=== PATIENT | male | born 1935 | race Caucasian/White ===

== ENCOUNTER 2017-11-28 10:34 | Inpatient (IN) | payer MEDICARE ==
[~2017-11-28] VITALS: Ht 172.7 cm; Wt 92.4 kg
[~2017-11-28 10:34] MED LIST: ACET-2247 PO; ALBU18HF7 IH; ALLO100T PO; ASPI81TA40 PO; CYAN50TA2 PO; DILT90TA2 PO; DUONEB IH; GLIM1TAB2 PO; HYDR12.54 PO; LISI-613 PO; LISI1TAB11 PO; MEMA10TA11 PO; MEMA5TAB7 PO; METF500T6 PO; METO100T14 PO; METO50TA18 PO; OMEP40CA37 PO; Z-PACK PO; vit D PO
[2017-11-28 11:05] LABS: BASOPHILS % (AUTO) 0.7 % (0.0-5.0); EOSINOPHILS % (AUTO) 3.5 % (0.0-8.0); HEMATOCRIT 44.6 % (42-54); LYMPHOCYTES % (AUTO) 9.5 % (21.0-51.0); MEAN CORPUSCULAR HEMOGLOBIN 28.2 pg (27.0-33.0); MEAN CORPUSCULAR HGB CONC 32.8 g/dL (32.0-36.0); MEAN CORPUSCULAR VOLUME 85.9 fL (79-99); MONOCYTES % (AUTO) 7.3 % (3.0-13.0); NUCLEATED RED BLOOD CELLS 0.1 % (0.0-0.19); PLATELET COUNT (AUTO) 137 K/uL (130-400); RED BLOOD CELL COUNT(AUTO) 5.19 MIL/uL (4.50-6.20); RED CELL DISTRIBUTION WIDTH 17.3 % (11.0-15.5); WHITE BLOOD COUNT (AUTO) 11.7 K/uL (4.8-10.8)
[2017-11-28] MEDS ORDERED: ASPIRIN 325 MG TABLET ONE (11:11)
[2017-11-28 11:14] LABS: CREATININE 1.6 mg/dL (0.5-1.5); POTASSIUM 5.4 mmol/L (3.5-5.1)
[2017-11-28 11:34] LABS: ALBUMIN 3.3 g/dL (3.5-5.0); BILIRUBIN,TOTAL 0.9 mg/dL (0.2-1.0); CREATINE KINASE MB 1.3 ng/mL (0.5-3.6); TOTAL PROTEIN, SERUM 7.2 g/dL (6.0-8.3)
[2017-11-28 12:02] LABS: INR 3.99 (0.85-1.15); PROTHROMBIN TIME 40.8 SEC (9.6-11.6)
[2017-11-28] MEDS ORDERED: IPRATROPIUM/ALBUTEROL SULFATE 3 ML SOLUTION IH ONE (14:38)
[2017-11-28] MEDS ORDERED: HYDRALAZINE HCL 20 MG/ML VIAL IV PRN (15:30)
[2017-11-28] MEDS ORDERED: ACETAMINOPHEN 325 MG TAB PO PRN (15:30)
[2017-11-28] MEDS ORDERED: LACTULOSE 20 GM/30 ML UDCUP PO PRN (15:30)
[2017-11-28] MEDS ORDERED: CEFTRIAXONE 1GM/D5W 50ML 50 ML IV SCH (15:30)
[2017-11-28] MEDS ORDERED: DIPHENHYDRAMINE HCL 25 MG CAPSULE PO PRN (15:30)
[2017-11-28] MEDS: INSULIN HUMULIN R 100 UNIT/ML 3ML SQ SCH ×2 (16:30→21:00)
[2017-11-28] MEDS: IPRATROPIUM/ALBUTEROL SULFATE 3 ML SOLUTION IH SCH ×2 (19:29→23:36)
[2017-11-28] MEDS ORDERED: AZITHROMYCIN 500MG+NS 250ML 250 ML IV ONE (21:30)
[2017-11-28 22:00] VITALS: BP 142/77
[2017-11-28] MEDS ORDERED: IOPAMIDOL-370 100 ML VIAL IV ONE (22:57)
[2017-11-28] MEDS: AZITHROMYCIN 500MG+NS 250ML 250 ML IV SCH (23:00)
[2017-11-29] VITALS: BP 156/81
[2017-11-29] MEDS ORDERED: ARFO15VI3 IH (00:45)
[2017-11-29] MEDS ORDERED: CLOP75TA32 PO (00:45)
[2017-11-29] MEDS ORDERED: WARF2.5T85 PO (00:45)
[2017-11-29] MEDS ORDERED: ATOR10 PO (00:45)
[2017-11-29] MEDS ORDERED: NITR.4 SL (01:06)
[2017-11-29] MEDS: CEFTRIAXONE SODIUM 1 GM IVP SCH ×2 (01:08→15:37)
[2017-11-29 04:00] VITALS: BP 118/64
[2017-11-29 04:50] LABS: HEMATOCRIT 43.9 % (42-54); MEAN CORPUSCULAR HEMOGLOBIN 27.8 pg (27.0-33.0); MEAN CORPUSCULAR HGB CONC 32.3 g/dL (32.0-36.0); PLATELET COUNT (AUTO) 160 K/uL (130-400); RED CELL DISTRIBUTION WIDTH 17.5 % (11.0-15.5); WHITE BLOOD COUNT (AUTO) 12.5 K/uL (4.8-10.8)
[2017-11-29 04:55] LABS: CREATININE 1.5 mg/dL (0.5-1.5); MAGNESIUM 1.4 mg/dL (1.80-2.40); POTASSIUM 3.3 mmol/L (3.5-5.1)
[2017-11-29] MEDS: INSULIN HUMULIN R 100 UNIT/ML 3ML SQ SCH ×4 (06:36→21:00)
[2017-11-29] MEDS: IPRATROPIUM/ALBUTEROL SULFATE 3 ML SOLUTION IH SCH ×4 (07:10→23:14)
[2017-11-29 08:00] VITALS: BP 134/94
[2017-11-29] MEDS ORDERED: NITROGLYCERIN 0.4 MG SL TAB SL PRN (09:00)
[2017-11-29] MEDS ORDERED: ACETAMINOPHEN 325 MG TAB PO PRN (09:00)
[2017-11-29] MEDS ORDERED: PANTOPRAZOLE SODIUM 40 MG TABLET.DR PO SCH (09:00)
[2017-11-29] MEDS ORDERED: HYDROCHLOROTHIAZIDE 25 MG TABLET PO SCH (09:30)
[2017-11-29] MEDS: ALLOPURINOL 100 MG TABLET PO SCH (09:56)
[2017-11-29] MEDS: METFORMIN HCL 500 MG TABLET PO SCH (09:56)
[2017-11-29] MEDS: ASPIRIN 81 MG EC TAB PO SCH (09:56)
[2017-11-29] MEDS: MEMANTINE HCL 5 MG TABLET PO SCH ×2 (09:56→21:04)
[2017-11-29] MEDS: GLIMEPIRIDE 2 MG TABLET PO SCH ×2 (10:00→21:03)
[2017-11-29] MEDS: DILTIAZEM HCL 60 MG TABLET PO SCH ×2 (10:01→21:04)
[2017-11-29] MEDS: PANTOPRAZOLE SODIUM 40 MG TABLET.DR PO SCH (10:01)
[2017-11-29 11:00] VITALS: BP 135/74
[2017-11-29] MEDS: HALOPERIDOL LACTATE 5 MG/ML VIAL IV PRN ×2 (12:09→21:09)
[2017-11-29] MEDS ORDERED: POTASSIUM CHLORIDE 20 MEQ ERTAB PO PRN (12:30)
[2017-11-29] MEDS ORDERED: LIDOCAINE HCL-MPF 1% 2ML VIAL IVP PRN (12:30)
[2017-11-29] MEDS ORDERED: MAGNESIUM 2GM PREMIX 50ML 50 ML IV SCH (12:30)
[2017-11-29] MEDS ORDERED: SODIUM CHLORIDE 0.9% 1000ML 1,000 ML IV SCH (12:30)
[2017-11-29] MEDS ORDERED: POTASSIUM CHLORIDE 20MEQ/100ML 100 ML IV PRN (12:30)
[2017-11-29] MEDS: AZITHROMYCIN 500MG+NS 250ML 250 ML IV SCH (15:38)
[2017-11-29 16:00] VITALS: BP 142/22
[2017-11-29 20:00] VITALS: BP 144/92
[2017-11-29] MEDS: BROVANA 15 MCG IH SCH (21:00)
[2017-11-29] MEDS: HYDROCHLOROTHIAZIDE 25 MG TABLET PO SCH (21:02)
[2017-11-29] MEDS: LISINOPRIL 20 MG TABLET PO SCH (21:03)
[2017-11-29] MEDS: ATORVASTATIN CALCIUM 20 MG TABLET PO SCH (21:03)
[2017-11-29] MEDS ORDERED: RIVA1PAT12 TD (21:16)
[2017-11-29] MEDS ORDERED: [UNRECOGNIZED DRUG - CODE] TD (21:16)
[2017-11-30] VITALS (7 sets, daily range): BP systolic 103–166; BP diastolic 60–94
[2017-11-30 04:23] LABS: HEMATOCRIT 39.7 % (42-54); MEAN CORPUSCULAR HEMOGLOBIN 28.3 pg (27.0-33.0); MEAN CORPUSCULAR HGB CONC 33.4 g/dL (32.0-36.0); MEAN CORPUSCULAR VOLUME 84.6 fL (79-99); PLATELET COUNT (AUTO) 146 K/uL (130-400); RED CELL DISTRIBUTION WIDTH 17.5 % (11.0-15.5); WHITE BLOOD COUNT (AUTO) 9.8 K/uL (4.8-10.8)
[2017-11-30 04:51] LABS: INR 2.26 (0.85-1.15); PARTIAL THROMBOPLASTIN TIME 38.7 SEC (26.3-35.5); PROTHROMBIN TIME 23.4 SEC (9.6-11.6)
[2017-11-30 04:55] LABS: CREATININE 1.3 mg/dL (0.5-1.5); MAGNESIUM 1.6 mg/dL (1.80-2.40)
[2017-11-30] MEDS: IPRATROPIUM/ALBUTEROL SULFATE 3 ML SOLUTION IH SCH ×4 (06:42→23:52)
[2017-11-30] MEDS: INSULIN HUMULIN R 100 UNIT/ML 3ML SQ SCH ×4 (07:30→22:13)
[2017-11-30] MEDS: METFORMIN HCL 500 MG TABLET PO SCH ×2 (09:00→21:00)
[2017-11-30] MEDS: BROVANA 15 MCG IH SCH ×2 (09:00→21:00)
[2017-11-30] MEDS: ASPIRIN 81 MG EC TAB PO SCH (11:25)
[2017-11-30] MEDS: DILTIAZEM HCL 60 MG TABLET PO SCH ×2 (11:26→22:02)
[2017-11-30] MEDS: GLIMEPIRIDE 2 MG TABLET PO SCH (11:27)
[2017-11-30] MEDS: HYDROCHLOROTHIAZIDE 25 MG TABLET PO SCH (11:28)
[2017-11-30] MEDS: PANTOPRAZOLE SODIUM 40 MG TABLET.DR PO SCH (11:28)
[2017-11-30] MEDS: LISINOPRIL 20 MG TABLET PO SCH ×2 (11:31→22:00)
[2017-11-30] MEDS: ALLOPURINOL 100 MG TABLET PO SCH (11:31)
[2017-11-30] MEDS: POTASSIUM CHLORIDE 10% ELIXIR 20 MEQ/15 ML UDCUP PO PRN ×2 (11:32→19:15)
[2017-11-30] MEDS: MEMANTINE HCL 5 MG TABLET PO SCH ×2 (11:39→22:01)
[2017-11-30] MEDS ORDERED: CEFEPIME 1GM+NS 50ML 50 ML IV SCH (13:00)
[2017-11-30] MEDS ORDERED: MAGNESIUM 2GM PREMIX 50ML 50 ML IV SCH (13:00)
[2017-11-30] MEDS ORDERED: METFORMIN HCL 500 MG TABLET ONE (14:17)
[2017-11-30] MEDS: DEXAMETHASONE SOD PHOSPHATE 4 MG/ML 1ML VIAL IVP SCH (18:08)
[2017-11-30] MEDS: DOXYCYCLINE 100MG+NS 250ML 250 ML IV SCH (18:09)
[2017-11-30] MEDS: CEFEPIME HCL 1 GM VIAL IVP SCH ×2 (18:09→22:45)
[2017-11-30] MEDS: WARFARIN SODIUM 2 MG TAB PO SCH (18:11)
[2017-11-30] MEDS: BUDESONIDE 0.5 MG/2 ML INH IH SCH (19:35)
[2017-11-30] MEDS: ATORVASTATIN CALCIUM 20 MG TABLET PO SCH (22:01)
[2017-12-01] VITALS (7 sets, daily range): BP systolic 111–152; BP diastolic 61–90
[2017-12-01] MEDS: DEXAMETHASONE SOD PHOSPHATE 4 MG/ML 1ML VIAL IVP SCH ×2 (02:36→13:02)
[2017-12-01] MEDS: DOXYCYCLINE 100MG+NS 250ML 250 ML IV SCH ×2 (03:48→13:01)
[2017-12-01 04:37] LABS: CREATININE 1.5 mg/dL (0.5-1.5); MAGNESIUM 1.9 mg/dL (1.80-2.40); POTASSIUM 3.9 mmol/L (3.5-5.1)
[2017-12-01] MEDS: CEFEPIME HCL 1 GM VIAL IVP SCH ×3 (05:57→23:15)
[2017-12-01] MEDS ORDERED: INSULIN HUMULIN R 100 UNIT/ML 3ML SQ ONE (06:02)
[2017-12-01] MEDS: INSULIN HUMULIN R 100 UNIT/ML 3ML SQ SCH ×4 (06:46→21:25)
[2017-12-01] MEDS: BUDESONIDE 0.5 MG/2 ML INH IH SCH ×2 (06:47→18:31)
[2017-12-01] MEDS: IPRATROPIUM/ALBUTEROL SULFATE 3 ML SOLUTION IH SCH ×4 (06:47→23:32)
[2017-12-01] MEDS: METFORMIN HCL 500 MG TABLET PO SCH ×2 (09:00→21:00)
[2017-12-01] MEDS: BROVANA 15 MCG IH SCH ×2 (09:00→21:00)
[2017-12-01] MEDS ORDERED: COMPOUND IV REFRIGERATED 1 EACH IVSOLN MISC PRN (09:30)
[2017-12-01] MEDS ORDERED: VANCOMYCIN PROTOCOL PER PHARMACY IV SCH (09:30)
[2017-12-01] MEDS: VANCOMYCIN 1.25 GM in SODIUM CHLORIDE 0.9% 250 ML IV SCH (13:02)
[2017-12-01] MEDS: MEMANTINE HCL 5 MG TABLET PO SCH ×2 (13:03→21:19)
[2017-12-01] MEDS: DILTIAZEM HCL 60 MG TABLET PO SCH ×2 (13:03→21:20)
[2017-12-01] MEDS: LISINOPRIL 20 MG TABLET PO SCH ×2 (13:04→21:20)
[2017-12-01] MEDS: ASPIRIN 81 MG EC TAB PO SCH (13:04)
[2017-12-01] MEDS: ALLOPURINOL 100 MG TABLET PO SCH (13:04)
[2017-12-01] MEDS: ENOXAPARIN SODIUM 40 MG/0.4 ML SYRINGE SQ SCH ×2 (13:08→13:15)
[2017-12-01] MEDS: PANTOPRAZOLE SODIUM 40 MG TABLET.DR PO SCH (13:26)
[2017-12-01] MEDS: WARFARIN SODIUM 2 MG TAB PO SCH (18:56)
[2017-12-01] MEDS: GUAIFENESIN-DM 200/20 MG 10 ML PO PRN (19:00)
[2017-12-01] MEDS: ATORVASTATIN CALCIUM 20 MG TABLET PO SCH (21:19)
[2017-12-01] MEDS: INSULIN GLARGINE 100 UNITS/ML 10 ML VIAL SQ SCH (21:27)
[2017-12-02] MEDS: DEXAMETHASONE SOD PHOSPHATE 4 MG/ML 1ML VIAL IVP SCH (01:22)
[2017-12-02] MEDS: HALOPERIDOL LACTATE 5 MG/ML VIAL IV PRN (03:06)
[2017-12-02] MEDS: DOXYCYCLINE 100MG+NS 250ML 250 ML IV SCH ×2 (03:06→17:55)
[2017-12-02 03:57] VITALS: BP 131/80
[2017-12-02 05:55] LABS: HEMATOCRIT 42.2 % (42-54); MEAN CORPUSCULAR HEMOGLOBIN 27.6 pg (27.0-33.0); MEAN CORPUSCULAR HGB CONC 32.7 g/dL (32.0-36.0); MEAN CORPUSCULAR VOLUME 84.4 fL (79-99); PLATELET COUNT (AUTO) 160 K/uL (130-400); RED CELL DISTRIBUTION WIDTH 17.4 % (11.0-15.5); WHITE BLOOD COUNT (AUTO) 17.5 K/uL (4.8-10.8)
[2017-12-02 06:07] LABS: INR 1.62 (0.85-1.15); PROTHROMBIN TIME 16.8 SEC (9.6-11.6)
[2017-12-02 06:13] LABS: CREATININE 1.3 mg/dL (0.5-1.5)
[2017-12-02] MEDS: INSULIN HUMULIN R 100 UNIT/ML 3ML SQ SCH ×4 (06:22→21:26)
[2017-12-02] MEDS: IPRATROPIUM/ALBUTEROL SULFATE 3 ML SOLUTION IH SCH ×3 (06:49→23:31)
[2017-12-02] MEDS: BUDESONIDE 0.5 MG/2 ML INH IH SCH ×2 (06:49→18:56)
[2017-12-02] MEDS: CEFEPIME HCL 1 GM VIAL IVP SCH ×3 (07:00→22:22)
[2017-12-02] MEDS: BROVANA 15 MCG IH SCH ×2 (07:51→21:00)
[2017-12-02] MEDS: METFORMIN HCL 500 MG TABLET PO SCH ×2 (07:54→21:00)
[2017-12-02 08:00] VITALS: BP 134/85
[2017-12-02] MEDS: MEMANTINE HCL 5 MG TABLET PO SCH ×2 (08:10→21:21)
[2017-12-02] MEDS: LISINOPRIL 20 MG TABLET PO SCH ×2 (08:11→21:21)
[2017-12-02] MEDS: PANTOPRAZOLE SODIUM 40 MG TABLET.DR PO SCH (08:11)
[2017-12-02] MEDS: ASPIRIN 81 MG EC TAB PO SCH (08:11)
[2017-12-02] MEDS: DILTIAZEM HCL 60 MG TABLET PO SCH ×2 (08:12→21:21)
[2017-12-02] MEDS: ALLOPURINOL 100 MG TABLET PO SCH (08:22)
[2017-12-02] MEDS: VANCOMYCIN 1.25 GM in SODIUM CHLORIDE 0.9% 250 ML IV SCH (10:00)
[2017-12-02] MEDS ORDERED: ZIPRASIDONE MESYLATE 20 MG/VIAL IM PRN (11:45)
[2017-12-02 12:00] VITALS: BP 140/69
[2017-12-02 16:39] VITALS: BP 151/72
[2017-12-02] MEDS: WARFARIN SODIUM 2 MG TAB PO SCH (17:55)
[2017-12-02 20:00] VITALS: BP 144/71
[2017-12-02] MEDS: ATORVASTATIN CALCIUM 20 MG TABLET PO SCH (21:21)
[2017-12-02] MEDS: INSULIN GLARGINE 100 UNITS/ML 10 ML VIAL SQ SCH (22:23)
[2017-12-02 23:34] VITALS: BP 123/74
[2017-12-03 04:00] VITALS: BP 141/85
[2017-12-03] MEDS: DOXYCYCLINE 100MG+NS 250ML 250 ML IV SCH (04:26)
[2017-12-03] MEDS: CEFEPIME HCL 1 GM VIAL IVP SCH (06:09)
[2017-12-03] MEDS: INSULIN HUMULIN R 100 UNIT/ML 3ML SQ SCH ×4 (06:10→21:14)
[2017-12-03 06:16] LABS: HEMATOCRIT 42.4 % (42-54); MEAN CORPUSCULAR HGB CONC 32.6 g/dL (32.0-36.0); MEAN CORPUSCULAR VOLUME 85.9 fL (79-99); PLATELET COUNT (AUTO) 169 K/uL (130-400); RED BLOOD CELL COUNT(AUTO) 4.94 MIL/uL (4.50-6.20); RED CELL DISTRIBUTION WIDTH 17.5 % (11.0-15.5); WHITE BLOOD COUNT (AUTO) 12.7 K/uL (4.8-10.8)
[2017-12-03] MEDS: BUDESONIDE 0.5 MG/2 ML INH IH SCH ×2 (06:42→18:34)
[2017-12-03] MEDS: IPRATROPIUM/ALBUTEROL SULFATE 3 ML SOLUTION IH SCH ×4 (06:42→23:49)
[2017-12-03 07:00] VITALS: BP 133/70
[2017-12-03] MEDS: METFORMIN HCL 500 MG TABLET PO SCH ×2 (09:00→21:00)
[2017-12-03] MEDS: BROVANA 15 MCG IH SCH ×2 (09:00→21:00)
[2017-12-03] MEDS: LISINOPRIL 20 MG TABLET PO SCH ×2 (10:21→21:11)
[2017-12-03] MEDS: MEMANTINE HCL 5 MG TABLET PO SCH ×2 (10:21→21:11)
[2017-12-03] MEDS: DILTIAZEM HCL 60 MG TABLET PO SCH ×2 (10:23→21:12)
[2017-12-03] MEDS: ALLOPURINOL 100 MG TABLET PO SCH (10:23)
[2017-12-03] MEDS: ASPIRIN 81 MG EC TAB PO SCH (10:23)
[2017-12-03] MEDS: PANTOPRAZOLE SODIUM 40 MG TABLET.DR PO SCH (10:24)
[2017-12-03] MEDS: VANCOMYCIN 1.25 GM in SODIUM CHLORIDE 0.9% 250 ML IV SCH (10:28)
[2017-12-03 10:51] VITALS: BP 131/70
[2017-12-03] MEDS ORDERED: AZITHROMYCIN 250 MG TABLET PO SCH (14:45)
[2017-12-03 15:45] VITALS: BP 127/68
[2017-12-03] MEDS: WARFARIN SODIUM 2 MG TAB PO SCH (16:56)
[2017-12-03 19:00] VITALS: BP 166/82
[2017-12-03] MEDS: ATORVASTATIN CALCIUM 20 MG TABLET PO SCH (21:11)
[2017-12-03] MEDS: INSULIN GLARGINE 100 UNITS/ML 10 ML VIAL SQ SCH (21:13)
[2017-12-03 23:00] VITALS: BP 141/65
[2017-12-04] MEDS: GUAIFENESIN-DM 200/20 MG 10 ML PO PRN (01:10)
[2017-12-04 03:00] VITALS: BP 132/68
[2017-12-04 05:31] LABS: MEAN CORPUSCULAR HEMOGLOBIN 28.4 pg (27.0-33.0); MEAN CORPUSCULAR HGB CONC 33.3 g/dL (32.0-36.0); MEAN CORPUSCULAR VOLUME 85.3 fL (79-99); PLATELET COUNT (AUTO) 172 K/uL (130-400); RED BLOOD CELL COUNT(AUTO) 4.92 MIL/uL (4.50-6.20); RED CELL DISTRIBUTION WIDTH 17.2 % (11.0-15.5); WHITE BLOOD COUNT (AUTO) 11.5 K/uL (4.8-10.8)
[2017-12-04 05:42] LABS: CREATININE 1.2 mg/dL (0.5-1.5); POTASSIUM 3.7 mmol/L (3.5-5.1)
[2017-12-04 05:43] LABS: INR 1.76 (0.85-1.15); PARTIAL THROMBOPLASTIN TIME 31.8 SEC (26.3-35.5); PROTHROMBIN TIME 18.3 SEC (9.6-11.6)
[2017-12-04] MEDS: BUDESONIDE 0.5 MG/2 ML INH IH SCH ×2 (06:32→18:31)
[2017-12-04] MEDS: IPRATROPIUM/ALBUTEROL SULFATE 3 ML SOLUTION IH SCH ×4 (06:32→23:31)
[2017-12-04 07:00] VITALS: BP 145/78
[2017-12-04] MEDS: INSULIN HUMULIN R 100 UNIT/ML 3ML SQ SCH ×4 (07:30→21:32)
[2017-12-04] MEDS: BROVANA 15 MCG IH SCH (09:00)
[2017-12-04] MEDS: METFORMIN HCL 500 MG TABLET PO SCH ×2 (09:00→19:55)
[2017-12-04] MEDS: DILTIAZEM HCL 60 MG TABLET PO SCH ×2 (09:59→21:29)
[2017-12-04] MEDS: ALLOPURINOL 100 MG TABLET PO SCH (09:59)
[2017-12-04] MEDS: MEMANTINE HCL 5 MG TABLET PO SCH ×2 (10:00→21:28)
[2017-12-04] MEDS: PANTOPRAZOLE SODIUM 40 MG TABLET.DR PO SCH (10:00)
[2017-12-04] MEDS: LISINOPRIL 20 MG TABLET PO SCH ×2 (10:00→21:28)
[2017-12-04] MEDS: ASPIRIN 81 MG EC TAB PO SCH (10:00)
[2017-12-04 11:00] VITALS: BP 152/68
[2017-12-04] MEDS ORDERED: VANCOMYCIN PROTOCOL PER PHARMACY IV SCH (11:45)
[2017-12-04] MEDS ORDERED: VANCOMYCIN 1.5 GM in SODIUM CHLORIDE 0.9% 250 ML IV SCH (13:00)
[2017-12-04 15:49] VITALS: BP 145/77
[2017-12-04] MEDS: WARFARIN SODIUM 2 MG TAB PO SCH (16:05)
[2017-12-04 19:00] VITALS: BP 144/83
[2017-12-04] MEDS: ATORVASTATIN CALCIUM 20 MG TABLET PO SCH (21:28)
[2017-12-04] MEDS: INSULIN GLARGINE 100 UNITS/ML 10 ML VIAL SQ SCH (21:31)
[2017-12-04 23:00] VITALS: BP 133/80
[2017-12-05 03:00] VITALS: BP 124/73
[2017-12-05 04:46] LABS: HEMATOCRIT 44.7 % (42-54); MEAN CORPUSCULAR HEMOGLOBIN 28.4 pg (27.0-33.0); MEAN CORPUSCULAR HGB CONC 33.1 g/dL (32.0-36.0); NUCLEATED RED BLOOD CELLS 0.1 % (0.0-0.19); PLATELET COUNT (AUTO) 194 K/uL (130-400); RED CELL DISTRIBUTION WIDTH 17.5 % (11.0-15.5); WHITE BLOOD COUNT (AUTO) 12.2 K/uL (4.8-10.8)
[2017-12-05 05:00] LABS: CREATININE 1.3 mg/dL (0.5-1.5); POTASSIUM 3.6 mmol/L (3.5-5.1)
[2017-12-05 05:25] LABS: BAND NEUTROPHILS % (MANUAL) 1 % (0-2); BASOPHILS % (MANUAL) 1 % (0-2); LYMPHOCYTES % (MANUAL) 16 % (22-44); MONOCYTES % (MANUAL) 6 % (2-9); SEGMENTED NEUTROPHILS % 76 % (40-70)
[2017-12-05 05:26] LABS: MAN.DIFF COMMENT-IMPRESSION MANUAL DIFFERENTIAL; PLATELET MORPHOLOGY COMMENT ADEQUATE
[2017-12-05] MEDS: INSULIN HUMULIN R 100 UNIT/ML 3ML SQ SCH (06:00)
[2017-12-05] MEDS: IPRATROPIUM/ALBUTEROL SULFATE 3 ML SOLUTION IH SCH (06:25)
[2017-12-05] MEDS: BUDESONIDE 0.5 MG/2 ML INH IH SCH (06:37)
[2017-12-05 08:00] VITALS: BP 143/89
== END 2017-12-05 09:50 | disposition home or self-care (01) | DRG 871 ==
LOC: EDH 10:34 → EDHIP 15:22 → 3DH 21:16
PROVIDERS: ADMIT Family Medicine; ATTEND Family Medicine
DX: A41.9 Sepsis, unspecified organism (principal); J96.21 Acute and chronic respiratory failure with hypoxia; E11.65 Type 2 diabetes mellitus with hyperglycemia; J96.22 Acute and chronic respiratory failure with hypercapnia; J44.0 Chronic obstructive pulmonary disease with (acute) lower respiratory infection; J44.1 Chronic obstructive pulmonary disease with (acute) exacerbation; B96.89 Other specified bacterial agents as the cause of diseases classified elsewhere; E11.9 Type 2 diabetes mellitus without complications; I10 Essential (primary) hypertension; F03.90 Unspecified dementia, unspecified severity, without behavioral disturbance, psychotic disturbance, mood disturbance, and anxiety; I25.10 Atherosclerotic heart disease of native coronary artery without angina pectoris; E83.42 Hypomagnesemia; E87.6 Hypokalemia; I48.2 Chronic atrial fibrillation; I71.4 Abdominal aortic aneurysm, without rupture; B95.8 Unspecified staphylococcus as the cause of diseases classified elsewhere; J20.9 Acute bronchitis, unspecified; E78.5 Hyperlipidemia, unspecified; R79.1 Abnormal coagulation profile; T38.0X5A Adverse effect of glucocorticoids and synthetic analogues, initial encounter; Z87.891 Personal history of nicotine dependence; Z86.79 Personal history of other diseases of the circulatory system; Z79.01 Long term (current) use of anticoagulants; Z99.81 Dependence on supplemental oxygen; Z88.6 Allergy status to analgesic agent; I25.2 Old myocardial infarction
CPT/HCPCS: 36415; 71045; 71260; 78580; 80048; 80053; 82550; 82553; 82948; 83735; 83874; 83880; 84484; 85025; 85027; 85378; 85610; 85730; 87040; 87186; 92610; 93005; 94640; 94664; A4218; A9540; J0456; J0692; J0696; J1100; J1630; J1650; J1815; J3370; J3475; J3490; J7030; Q9967